=== PATIENT | male | born 1965 | race Hispanic/Latino ===

== ENCOUNTER 2017-08-25 14:37 | Emergency (ER) | payer SELFPAY ==
--- NOTE | 2017-08-25 15:08 | C.PDOC ---
Time Seen by Provider: 08/25/17 14:57 Chief Complaint (Nursing): Upper Extremity Problem/Injury History Per: Patient History/Exam Limitations: no limitations Past Medical History Reviewed: Historical Data, Nursing Documentation, Vital Signs Vital Signs: Last Vital Signs Temp 97.6 F 08/25/17 14:47 Pulse 87 08/25/17 14:47 Resp 16 08/25/17 14:47 BP 125/88 08/25/17 14:47 Pulse Ox 98 08/25/17 14:47 - Medical History PMH: Malignancy (Colorectal CA) Family History: States: No Known Family Hx - Social History Hx Tobacco Use: Yes Hx Alcohol Use: Yes Hx Substance Use: No - Immunization History Hx Tetanus Toxoid Vaccination: No Hx Influenza Vaccination: No Hx Pneumococcal Vaccination: No Physical Exam - Physical Exam Skin: Normal Color, Warm, Dry Head: Atraumatic, Normacephalic Eye(s): bilateral: Normal Inspection, PERRL, EOMI Oral Mucosa: Moist Neck: Normal ROM Chest: Symmetrical Respiratory: No Accessory Muscle Use Neurological/Psych: Oriented x3, Normal Speech ED Course And Treatment O2 Sat by Pulse Oximetry: 98 (RA) Pulse Ox Interpretation: Normal Medical Decision Making Medical Decision Making: Impression: Time: 15:00 Initial Plan: --x-rays of right elbow, humerus, shoulder, and hand Disposition - Disposition - Scribe Statement The provider has reviewed the documentation as recorded by the Scribe (Rajni Naik) Provider Attestation: All medical record entries made by the Scribe were at my direction and personally dictated by me. I have reviewed the chart and agree that the record accurately reflects my personal performance of the history, physical exam, medical decision making, and the department course for this patient. I have also personally directed, reviewed, and agree with the discharge instructions and disposition.
--- NOTE | 2017-08-25 15:09 | C.PDOC ---
History Of Present Illness 51 y/o male presents to the ED complaining of right shoulder injury that began last night. Patient states he tripped and fell, injuring the shoulder. No head trauma or LOC. Now complaining of persistent pain and limited movement of right shoulder. Also sustained abrasion to hand. Denies any other injury, or changes in sensation. Of note, patient is right hand dominant. R SHOULDER INJURY ONSET LAST NIGHT. PS SP TRIP AND FALL. CO PERSIST PAIN, LIMTIED MOVEMENT R SHOULDER. +R HAND ABRASION. DENIES OTHER ASSOC INJ. R HANDED EXAM MILD DIST NONTOXIC HEENT ATRAUM EXT RUE LIMITED ROM R SHOULDER, NO GROSS FLATTENING, HELD INT ROTATION. GEN TEND. FULL SUPINATION R ELBOW Time Seen by Provider: 08/25/17 14:57 Chief Complaint (Nursing): Upper Extremity Problem/Injury History Per: Patient History/Exam Limitations: no limitations Onset/Duration Of Symptoms: Days Current Symptoms Are (Timing): Still Present Past Medical History Reviewed: Historical Data, Nursing Documentation, Vital Signs Vital Signs: Last Vital Signs Temp 97.6 F 08/25/17 14:47 Pulse 87 08/25/17 14:47 Resp 16 08/25/17 14:47 BP 125/88 08/25/17 14:47 Pulse Ox 98 08/25/17 16:05 Family History: States: No Known Family Hx - Social History Hx Tobacco Use: Yes Hx Alcohol Use: Yes Hx Substance Use: No - Immunization History Hx Tetanus Toxoid Vaccination: No Hx Influenza Vaccination: No Hx Pneumococcal Vaccination: No Review Of Systems Except As Marked, All Systems Reviewed And Found Negative. Musculoskeletal: Positive for: Shoulder Pain Neurological: Negative for: Weakness, Numbness Physical Exam - Physical Exam Appears: Non-toxic, In Acute Distress (mild) Skin: Normal Color, Warm, Dry Head: Atraumatic, Normacephalic Eye(s): bilateral: Normal Inspection, PERRL, EOMI Oral Mucosa: Moist Neck: Normal ROM, Supple Chest: Symmetrical Respiratory: No Accessory Muscle Use Extremity: No Normal ROM (Limited ROM of right shoulder, no gross flattening, held internal rotation), Tenderness (generalized tenderness over the right shoulder), Other (Full supination at right elbow) Pulses: Left Radial: Normal, Right Radial: Normal Neurological/Psych: Oriented x3, Normal Speech ED Course And Treatment O2 Sat by Pulse Oximetry: 98 (RA) Pulse Ox Interpretation: Normal - Other Rad R SHOULD X-Ray: Interpreted by Me (HUMERAL HEAD FX NO DISLOC) R HUMERUS X-Ray: Interpreted by Me (HUMERAL HEAD FX) R ELBOW X-Ray: Interpreted by Me (NEG) Medical Decision Making Medical Decision Making: Time: 15:00 Plan: --X-ray R ELBOW --X-ray R HAND --X-ray R HUMERUS --X-ray R SHOULDER --Tylenol 650 mg PO Informed patient that x-ray shows +fracture. Patient treated with PO Percocet in the ED. Stable for d/c home and advised to follow up with the clinic/ orthopedics. Disposition Counseled Patient/Family Regarding: Studies Performed, Diagnosis, Need For Followup, Rx Given - Disposition Referrals: [facility] [Outside] [facility] [Outside] Hannah Hernandes MD [Staff Provider] - Disposition: HOME/ ROUTINE Disposition Time: 15:42 Prescriptions: Hydrocodone/Acetaminophen [[place] 325 mg-5 mg] 1 tab PO QID #12 tab Instructions: Shoulder Fracture (DC) Forms: [employer] (Yoruba), Work Excuse - POA Present On Arrival: Falls Or Trauma - Clinical Impression Clinical Impression: Humeral head fracture - Scribe Statement The provider has reviewed the documentation as recorded by the Scribe (Rajni Naik) Provider Attestation: All medical record entries made by the Scribe were at my direction and personally dictated by me. I have reviewed the chart and agree that the record accurately reflects my personal performance of the history, physical exam, medical decision making, and the department course for this patient. I have also personally directed, reviewed, and agree with the discharge instructions and disposition.
[2017-08-25] MEDS ORDERED: Oxycodone/Acetaminophen 5/325 mg Tab PO STA (15:34)
[2017-08-25] MEDS ORDERED: Oxycodone/Acetaminophen 5/325 mg Tab ONE (15:42)
--- NOTE | 2017-08-25 16:00 | RAD ---
PROCEDURE: Radiographs of the right humerus. HISTORY: Trauma COMPARISON: None. FINDINGS: BONES: There is an acute fracture in the proximal humerus involving the neck and greater tuberosity with 5 mm lateral distraction of the greater tuberosity fracture fragment. Bone alignment and mineralization are normal. SOFT TISSUES: Normal. OTHER FINDINGS: None. IMPRESSION: Acute fracture in the proximal humerus at 5 mm lateral distraction of the greater tuberosity fracture fragment. No dislocation.
--- NOTE | 2017-08-25 16:01 | RAD ---
PROCEDURE: Radiographs of the Right Shoulder HISTORY: Trauma COMPARISON: No prior. FINDINGS: BONES: Acute fracture in the proximal humerus involving the neck and greater tuberosity with 5 mm lateral distraction of the greater tuberosity fracture fragment. Bone alignment and mineralization are normal. JOINTS: Glenohumeral and acromioclavicular joints preserved. SOFT TISSUES: Normal. OTHER FINDINGS: None. IMPRESSION: Acute fracture in the proximal humerus involving the neck and greater tuberosity with 5 mm lateral distraction of the greater tuberosity fracture fragment. No dislocation.
--- NOTE | 2017-08-25 16:04 | RAD ---
PROCEDURE: Radiographs of the right elbow. HISTORY: Trauma COMPARISON: No prior. FINDINGS: BONES: Bone alignment and mineralization are normal. There is no acute displaced fracture or bone destruction. JOINTS: Normal. SOFT TISSUES: Normal. JOINT EFFUSION: None. OTHER FINDINGS: None. IMPRESSION: No acute fracture or dislocation.
[2017-08-25 16:08] VITALS: BP 121/81; PULSE 84; RESP 20; TEMP 98.1; O2SAT 96
== END 2017-08-25 16:17 | disposition home or self-care (01) ==
LOC: C.ER 14:37
DX: S42.251A Displaced fracture of greater tuberosity of right humerus, initial encounter for closed fracture (principal); W01.0XXA Fall on same level from slipping, tripping and stumbling without subsequent striking against object, initial encounter; Z72.0 Tobacco use